=== PATIENT | female | born 1970 | race Caucasian/White ===

== ENCOUNTER 2016-12-27 13:47 | Emergency (ER) | payer BC ==
[~2016-12-27 13:47] MED LIST: NO MEDICATIONS
[2016-12-27] MEDS ORDERED: ZANTAC150 M1 PO (13:59)
[2016-12-27] MEDS ORDERED: VENTOLIN HFA18 G2 PO (13:59)
[2016-12-27 14:15] LABS: BASO % 0.7 % (0-2); EOS % 3.2 % (0-7); EOSINOPHIL ABSOLUTE COUNT 0.2 tho/cmm (0.0-0.7); HGB-HEMOGLOBIN 13.4 gm/dl (12.0-15.5); IMMATURE GRANULOCYTES ABSOLUTE 0.02 tho/cmm (0-0.03); IMMATURE GRANULOCYTES PERCENT 0.4 % (0-0.3); LYMPH ABSOLUTE COUNT 1.9 tho/cmm (0.8-4.5); MCH (MEAN CORPUSCULAR HGB) 28.8 pg (28.0-32.0); MCHC MEAN CORPUSCULAR HGB CONC 33.5 % (32.0-36.0); MCV (MEAN CELL VOLUME) 85.8 fl (82.0-96.0); MEAN PLATELET VOLUME 9.7 cmc (9.4-12.4); MONO % 7.6 % (0-12); MONOCYTE ABSOLUTE COUNT 0.4 tho/cmm (0.0-1.2); NEUTROPHIL ABSOLUTE COUNT 3.1 tho/cmm (1.6-8.0); NEUTROPHIL-AUTOMATED 3.1 tho/cmm (1.6-8.0); NEUTROPHILS % 55.1 % (40-80); PLATELET COUNT 282 tho/cmm (150-450); RED BLOOD COUNT 4.66 mil/cmm (4.00-5.20); RED CELL DISTRIBUTION WIDTH 13.5 % (12.4-16.4); WHITE BLOOD COUNT 5.7 tho/cmm (4.0-10.0)
[2016-12-27] MEDS ORDERED: ASPIRIN325 M3 PO (14:19)
[2016-12-27 14:36] LABS: ANION GAP 13 mmol/L (0-20); BLOOD UREA NITROGEN 21 mg/dl (6-24); CALCIUM 9.2 mg/dl (8.5-10.5); CARBON DIOXIDE-VENOUS 24 mmol/L (22-32); CHLORIDE 109 mmol/l (96-110); CREATININE 0.89 mg/dl (0.50-1.10); GLUCOSE 89 mg/dL (70-110); SODIUM 141 mmol/L (135-145); eGFR VALUE FOR BLACK >90 mL/Min
[2016-12-27 14:42] LABS: POTASSIUM 4.5 mmol/L (3.7-5.1)
[2016-12-27] MEDS ORDERED: NORCO 5-325 TA1 EACH PO (17:01)
== END 2016-12-27 17:26 ==
LOC: EDMED 13:47
PROVIDERS: Emergency Medicine
DX: R07.81 Pleurodynia (principal); R91.1 Solitary pulmonary nodule; J45.909 Unspecified asthma, uncomplicated; K21.9 Gastro-esophageal reflux disease without esophagitis; Z86.73 Personal history of transient ischemic attack (TIA), and cerebral infarction without residual deficits; Z79.51 Long term (current) use of inhaled steroids; Z79.899 Other long term (current) drug therapy; Z87.891 Personal history of nicotine dependence; Z88.1 Allergy status to other antibiotic agents; Z98.890 Other specified postprocedural states
CPT/HCPCS: J1885; Q9967